=== PATIENT | male | born 1925 | race Caucasian/White ===

== ENCOUNTER 2017-03-10 09:05 | Day surgery (SDC) | payer MEDICARE, OTHER ==
[~2017-03-10 09:05] MED LIST: ADVIL200 M1 PO; ASPIRIN81 M1 PO; BACTRIM DS TAB1 EAC2 PO; CIPROFLOXACIN500 MG PO; COUMADIN3 MG PO; COUMADIN4 MG PO; KLOR-CON M2020 ME1 PO; LASIX20 M1 PO; LIPITOR20 M1 PO; METOPROLOL TART25 M1 PO; NITROFURANTOIN100 M PO; TYLENOL325 M2 PO; VITAMIN B-12250 MC2 PO; VITAMIN E400 UNI4 PO; ZESTRIL2.5 M3 PO
[2017-03-10 09:55] LABS: BASO % 0.1 % (0-2); HCT-HEMATOCRIT 36.4 % (36.0-53.5); HGB-HEMOGLOBIN 11.8 gm/dl (13.5-17.0); IMMATURE GRANULOCYTES ABSOLUTE 0.05 tho/cmm (0-0.03); IMMATURE GRANULOCYTES PERCENT 0.6 % (0-0.3); LYMPH % 21.4 % (20-45); LYMPH ABSOLUTE COUNT 1.7 tho/cmm (0.8-4.5); MCH (MEAN CORPUSCULAR HGB) 29.6 pg (28.0-32.0); MCHC MEAN CORPUSCULAR HGB CONC 32.4 % (32.0-36.0); MCV (MEAN CELL VOLUME) 91.5 fl (82.0-96.0); MEAN PLATELET VOLUME 10.6 cmc (9.4-12.4); MONO % 31.7 % (0-12); MONOCYTE ABSOLUTE COUNT 2.5 tho/cmm (0.0-1.2); NEUTROPHIL ABSOLUTE COUNT 3.7 tho/cmm (1.6-8.0); NEUTROPHIL-AUTOMATED 3.7 tho/cmm (1.6-8.0); NEUTROPHILS % 46.2 % (40-80); PLATELET COUNT 202 tho/cmm (150-450); RED BLOOD COUNT 3.98 mil/cmm (4.40-5.70); RED CELL DISTRIBUTION WIDTH 15.7 % (12.4-16.4); WHITE BLOOD COUNT 7.9 tho/cmm (4.0-10.0)
[2017-03-10 10:20] LABS: ANION GAP 18 mmol/L (0-20); BLOOD UREA NITROGEN 30 mg/dl (6-24); CALCIUM 8.5 mg/dl (8.5-10.5); CARBON DIOXIDE-VENOUS 18 mmol/L (22-32); CHLORIDE 109 mmol/l (96-110); CREATININE 2.02 mg/dl (0.60-1.30); GLUCOSE 100 mg/dL (70-110); SODIUM 140 mmol/L (135-145); eGFR VALUE FOR BLACK 33 mL/Min
[2017-03-11] MEDS ORDERED: NORCO 5-325 TA1 EACH PO (10:20)
[2017-05-21] MEDS ORDERED: CLOTRIMAZOLE (12:50)
== END 2017-03-11 11:19 ==
LOC: SRG 09:05 → SHSA 09:08 → ORW 11:28 → BURN 12:28
PROVIDERS: Anesthesiology; Surgery
PROC: XHRPXL2 Replacement of Skin using Porcine Liver Derived Skin Substitute, External Approach, New Technology Group 2 (ICD-10-PCS; principal; 2017-03-10)
PROC: 0HBLXZZ Excision of Left Lower Leg Skin, External Approach (ICD-10-PCS; principal; 2017-03-10)
DX: T24.002A Burn of unspecified degree of unspecified site of left lower limb, except ankle and foot, initial encounter (principal); T31.0 Burns involving less than 10% of body surface; I25.10 Atherosclerotic heart disease of native coronary artery without angina pectoris; M19.90 Unspecified osteoarthritis, unspecified site; I12.9 Hypertensive chronic kidney disease with stage 1 through stage 4 chronic kidney disease, or unspecified chronic kidney disease; N18.3 Chronic kidney disease, stage 3 (moderate); Z88.8 Allergy status to other drugs, medicaments and biological substances; Z79.899 Other long term (current) drug therapy; Z98.890 Other specified postprocedural states; Z90.49 Acquired absence of other specified parts of digestive tract
CPT/HCPCS: J0171; J1580; J3370; Q4105

== ENCOUNTER 2017-04-14 06:27 | Day surgery (SDC) | payer MEDICARE, OTHER ==
[~2017-04-14 06:27] MED LIST changes: +NORCO 5-325 TA1 EACH PO
[2017-04-14 07:39] LABS: BASO % 0.1 % (0-2); HCT-HEMATOCRIT 32.2 % (36.0-53.5); HGB-HEMOGLOBIN 10.5 gm/dl (13.5-17.0); IMMATURE GRANULOCYTES ABSOLUTE 0.03 tho/cmm (0-0.03); IMMATURE GRANULOCYTES PERCENT 0.4 % (0-0.3); LYMPH ABSOLUTE COUNT 1.3 tho/cmm (0.8-4.5); MCHC MEAN CORPUSCULAR HGB CONC 32.6 % (32.0-36.0); MEAN PLATELET VOLUME 11.5 cmc (9.4-12.4); MONOCYTE ABSOLUTE COUNT 3.9 tho/cmm (0.0-1.2); NEUTROPHIL ABSOLUTE COUNT 2.5 tho/cmm (1.6-8.0); NEUTROPHIL-AUTOMATED 2.5 tho/cmm (1.6-8.0); NEUTROPHILS % 32.5 % (40-80); PLATELET COUNT 143 tho/cmm (150-450); RED CELL DISTRIBUTION WIDTH 16.1 % (12.4-16.4); WHITE BLOOD COUNT 7.7 tho/cmm (4.0-10.0)
[2017-04-14 07:54] LABS: ANION GAP 14 mmol/L (0-20); BLOOD UREA NITROGEN 26 mg/dl (6-24); CALCIUM 8.4 mg/dl (8.5-10.5); CARBON DIOXIDE-VENOUS 21 mmol/L (22-32); CHLORIDE 111 mmol/l (96-110); CREATININE 1.36 mg/dl (0.60-1.30); GLUCOSE 111 mg/dL (70-110); POTASSIUM 4.6 mmol/L (3.7-5.1); SODIUM 141 mmol/L (135-145); eGFR VALUE FOR BLACK 53 mL/Min
[2017-04-14] MEDS ORDERED: COLACE100 M1 PO (17:59)
[2017-05-21] MEDS ORDERED: CLOTRIMAZOLE (12:50)
== END 2017-04-14 18:50 ==
LOC: SHSC 06:27 → ORW 08:25 → BURN 09:30
PROVIDERS: Anesthesiology; Surgery
PROC: 0HRLX73 Replacement of Left Lower Leg Skin with Autologous Tissue Substitute, Full Thickness, External Approach (ICD-10-PCS; principal; 2017-04-14)
DX: T24.332A Burn of third degree of left lower leg, initial encounter (principal); I12.9 Hypertensive chronic kidney disease with stage 1 through stage 4 chronic kidney disease, or unspecified chronic kidney disease; N18.3 Chronic kidney disease, stage 3 (moderate); I25.10 Atherosclerotic heart disease of native coronary artery without angina pectoris; I73.9 Peripheral vascular disease, unspecified; G47.30 Sleep apnea, unspecified; Z88.8 Allergy status to other drugs, medicaments and biological substances; Z90.49 Acquired absence of other specified parts of digestive tract; Z95.1 Presence of aortocoronary bypass graft; Z79.82 Long term (current) use of aspirin; Z79.899 Other long term (current) drug therapy; Z98.890 Other specified postprocedural states; X19.XXXA Contact with other heat and hot substances, initial encounter
CPT/HCPCS: J0171; J1580; J3260; J3370; J7030